=== PATIENT | female | born 1960 | race Caucasian/White ===

== ENCOUNTER 2018-09-15 05:55 | Day surgery (SDC) | payer OTHER ==
[~2018-09-15 05:55] MED LIST: Buffered Lidocaine 1% SYRIN* 1 ML/SYRINGE INTRADERM ONE
[2018-09-15] MEDS ORDERED: Lactated Ringers 1000 ML Bag* 1,000 ML IV SCH (06:00)
[2018-09-15] MEDS ORDERED: Sodium Citrate/Citric Acid* 15 ML UDC PO ONE (06:00)
[2018-09-15] MEDS ORDERED: Sodium Citrate/Citric Acid* 15 ML UDC ONE (06:37)
[2018-09-15] MEDS ORDERED: fentaNYL* 50 MCG/ML 2 ML VIAL (100 MCG VIAL) ONE (07:22)
[2018-09-15] MEDS ORDERED: Midazolam* 1 MG/ML 2 ML VIAL (2 MG) ONE (07:23)
[2018-09-15] MEDS ORDERED: Propofol* 10 MG/ML 20 ML BTL ONE (07:23)
[2018-09-15] MEDS ORDERED: Lidocaine 2% PF * 5 ML VIAL ONE (07:23)
[2018-09-15] MEDS ORDERED: Ondansetron INJ* 2 MG/ML VIAL IV PRN (08:12)
[2018-09-15] MEDS ORDERED: Naloxone* 0.4 MG/ML 1 ML VIAL IV PRN (08:12)
[2018-09-15] MEDS ORDERED: fentaNYL* 50 MCG/ML 2 ML VIAL (100 MCG VIAL) IV PRN (08:12)
[2018-09-15] MEDS ORDERED: Ketorolac INJ* 30 MG/ML 1 ML VIAL IV PRN (08:12)
[2018-09-15 08:26] VITALS: BP 125/76
--- NOTE | 2018-09-15 08:57 | OP ---
OPERATIVE REPORT: DATE OF OPERATION: 09/15/18 DATE OF : 60 SURGEON: Pepe Serrano MD CUSTOMER RELATIONS COORDINATOR: None. ANESTHESIA: General endotracheal. PRE-OP DIAGNOSIS: Postmenopausal bleeding. POST-OP DIAGNOSIS: Postmenopausal bleeding plus endometrial polyps. OPERATIVE PROCEDURE: D and C, hysteroscopy, polypectomy. ESTIMATED BLOOD LOSS: Minimal. SPECIMENS: Includes endometrium and polyps. FINDINGS: On exam under anesthesia, uterus was mid positioned; cervix, vagina, and vulva appeared no rmal. On hysteroscopy, there was a proximally 1 cm polyp from the anterior uterine wall and a smalle r, more sessile polyp in the left cornual region. The cavity appeared slightly inflamed, but otherwis e appeared normal. DESCRIPTION OF PROCEDURE: Patient identified, procedure identified as a D and C hysteroscopy. The p atient was taken to the operating room, prepped and draped in the usual fashion in dorsal lithotomy p osition under general anesthesia. Two single tooth tenaculums were placed on the anterior lip of the cervix. The MyoSure hysteroscope was inserted. The above findings were noted. The MyoSure LITE wa s utilized to resect the 2 polyps that were present down to a level flush with the rest of the endome trium. The hysteroscope was removed. A sharp curette was inserted, sharp curettage was performed wi th a small sample obtained. Good hemostasis was verified. All instruments were removed from the vag asiha and the patient returned to the recovery room in stable condition. All sponge and instrument cou nts were correct. [id number] #: [id number]
== END 2018-09-15 09:00 | disposition home or self-care (01) ==
LOC: OR 05:55
PROVIDERS: ATTEND Obstetrics & Gynecology
DX: N95.0 Postmenopausal bleeding (principal); N84.0 Polyp of corpus uteri; I10 Essential (primary) hypertension; Z87.891 Personal history of nicotine dependence; E66.9 Obesity, unspecified
CPT/HCPCS: 88305; A9270-GY; J2250; J2704; J3010